=== PATIENT | female | born 1960 | race Caucasian/White ===

== ENCOUNTER → 2024-08-15 08:57 | Outpatient (BNVA) | payer MEDICARE, OTHER, SELFPAY | PROVIDERS: Referring Provider Nurse Practitioner; Visit Provider Internal Medicine | DX: E05.90 Thyrotoxicosis, unspecified without thyrotoxic crisis or storm (principal); I10 Essential (primary) hypertension | CPT/HCPCS: 99204 ==

== ENCOUNTER 2024-11-07 07:10 | Outpatient (CLI) | payer MEDICARE, OTHER, SELFPAY ==
[2024-11-07 08:05] LABS: Free T4 Free Thyroxine 0.85 ng/dL (0.82-1.77)
[2024-11-10 11:33] LABS: Thyroid Peroxidase Antobodies 39 IU/mL (<9)
== END 2024-11-07 07:11 | disposition home or self-care (01) ==
PROVIDERS: PCP Nurse Practitioner; Visit Provider Internal Medicine
DX: E05.90 Thyrotoxicosis, unspecified without thyrotoxic crisis or storm (principal); I10 Essential (primary) hypertension
CPT/HCPCS: 84439; 86376; 86800; 99214